=== PATIENT | female | born 1955 | race African-American/Black ===

== ENCOUNTER 2017-02-01 10:44 | Emergency (ER) | payer BC ==
[~2017-02-01] VITALS: Ht 167.6 cm; Wt 72.6 kg
--- NOTE | ~2017-02-01 | EKG ---
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
[~2017-02-01 10:44] MED LIST: ACETAMINOPHEN-1 EAC1 PO; INDOMETHACIN 2525 MG PO; NAPROSYN500 MG PO
[2017-02-01] MEDS ORDERED: NORVASC2.5 MG PO (10:47)
[2017-02-01] MEDS ORDERED: HYDROCHLOROTH12.5 M1 PO (10:47)
[2017-02-01 11:48] LABS: ABSOLUTE NEUTROPHILS 5.7 thou/uL (1.4-8.2); BASOPHILS 1.1 % (0.0-2.0); EOSINOPHILS 0.7 % (0.0-3.0); HEMATOCRIT 45.7 % (37.0-47.0); HEMOGLOBIN 15.5 gm/dL (12.0-15.0); LYMPHOCYTES 24.5 % (24.0-44.0); MCH 31.8 pg (26.0-34.0); MCHC 33.8 g/dL (28.0-37.0); MCV 94.1 fL (80.0-100.0); MONOCYTES 7.9 % (1.0-8.0); PLATELET COUNT 195 thou/uL (150-400); POLYS 65.8 % (36.0-66.0); RBC 4.86 mil/uL (4.20-5.00); RDW 12.9 % (10.5-14.5); WBC 8.7 thou/uL (4.0-11.0)
[2017-02-01 11:50] LABS: MANUAL DIFF NO
[2017-02-01 11:59] LABS: ANION GAP 10 mmol/L (7-16); BUN 13 mg/dL (7-18); CALCIUM 9.1 mg/dL (8.5-10.1); CHLORIDE 105 mmol/L (98-107); CO2 23 mmol/L (21-32); CREATININE 0.8 mg/dL (0.6-1.0); GLUCOSE 115 mg/dL (74-106); POTASSIUM 3.8 mmol/L (3.5-5.1); SODIUM 138 mmol/L (136-145)
[2017-02-01 12:10] LABS: TROPONIN-I < 0.04 ng/mL (<0.06)
[2017-02-01 12:21] LABS: URINE BILIRUBIN NEGATIVE (Negative); URINE BLOOD TRACE (Negative); URINE COLOR YELLOW; URINE GLUCOSE-RANDOM* NEGATIVE (Negative); URINE KETONES NEGATIVE (Negative); URINE PROTEIN (DIPSTICK) TRACE (Negative)
[2017-02-01] MEDS ORDERED: PREDNISONE 20 M20 MG PO (12:23)
[2017-02-01] MEDS ORDERED: PROVENTIL HFA6.7 G1 INH (12:24)
[2017-02-01 12:25] LABS: URINE LEUKOCYTES-REFLEX 2+ (Negative)
[2017-02-01] MEDS ORDERED: MACROBID 100 M100 M1 PO (12:32)
[2017-02-01 12:39] LABS: CASTS None Seen /LPF (None Seen); CRYSTALS None Seen /LPF (None Seen); SQUAMOUS 0-3 Few /LPF (0-3)
[2017-02-01 12:40] LABS: URINE RBC 3-10 Few /HPF (0-2); URINE WBC-REFLEX >25 Many /HPF (0-5)
[2017-02-01 12:42] VITALS: BP 128/77
== END 2017-02-01 12:44 | disposition home or self-care (01) ==
LOC: ER 10:44
PROVIDERS: Physician Assistant
DX: J06.9 Acute upper respiratory infection, unspecified (principal); N39.0 Urinary tract infection, site not specified; B34.9 Viral infection, unspecified; I10 Essential (primary) hypertension; F17.210 Nicotine dependence, cigarettes, uncomplicated

== ENCOUNTER → 2018-02-04 | Outpatient (CLI) | payer BC ==
[~2018-02-04] MED LIST changes: +HYDROCHLOROTH12.5 M1 PO; +MACROBID 100 M100 M1 PO; +NORVASC2.5 MG PO; +PREDNISONE 20 M20 MG PO; +PROVENTIL HFA6.7 G1 INH
== END ==
LOC: RAD 15:27
DX: R06.02 Shortness of breath (principal); M41.86 Other forms of scoliosis, lumbar region

== ENCOUNTER → 2018-02-09 | Outpatient (CLI) | payer BC | LOC: BC 03:02 | DX: Z12.31 Encounter for screening mammogram for malignant neoplasm of breast (principal) ==

== ENCOUNTER 2018-03-13 22:55 | Emergency (ER) | payer BC ==
[~2018-03-13] VITALS: Ht 162.6 cm; Wt 72.6 kg
[2018-03-13] MEDS ORDERED: MOBIC7.5 MG PO (23:31)
[2018-03-13] MEDS ORDERED: MEDROLDOSEPACK PO (23:31)
[2018-03-13] MEDS ORDERED: ULTRAM 50MG TAB50 MG PO (23:31)
[2018-03-14 00:10] VITALS: BP 149/82
== END 2018-03-14 00:10 | disposition home or self-care (01) ==
LOC: ER 22:55
DX: M54.42 Lumbago with sciatica, left side (principal); F17.210 Nicotine dependence, cigarettes, uncomplicated; I10 Essential (primary) hypertension

== ENCOUNTER 2018-06-01 19:50 | Emergency (ER) | payer BC ==
[~2018-06-01] VITALS: Ht 167.6 cm; Wt 77.1 kg
[~2018-06-01 19:50] MED LIST changes: +MEDROLDOSEPACK PO; +MOBIC7.5 MG PO; +ULTRAM 50MG TAB50 MG PO
[2018-06-01 22:49] LABS: URINE BILIRUBIN NEGATIVE (Negative); URINE BLOOD NEGATIVE (Negative); URINE CLARITY CLEAR; URINE COLOR YELLOW; URINE GLUCOSE-RANDOM* NEGATIVE (Negative); URINE KETONES NEGATIVE (Negative); URINE NITRITE-REFLEX NEGATIVE (Negative); URINE PROTEIN (DIPSTICK) NEGATIVE (Negative); URINE SPECIFIC GRAVITY 1.015 (1.005-1.035)
[2018-06-01 22:50] LABS: ABSOLUTE NEUTROPHILS 2.5 thou/uL (1.4-8.2); BASOPHILS 0.7 % (0.0-2.0); HEMATOCRIT 46.4 % (37.0-47.0); HEMOGLOBIN 15.7 gm/dL (12.0-15.0); LYMPHOCYTES 41.4 % (24.0-44.0); MCH 32.4 pg (26.0-34.0); MCHC 33.9 g/dL (28.0-37.0); MCV 95.7 fL (80.0-100.0); MONOCYTES 9.2 % (1.0-8.0); PLATELET COUNT 157 thou/uL (150-400); POLYS 46.7 % (36.0-66.0); RBC 4.85 mil/uL (4.20-5.00); RDW 13.2 % (10.5-14.5); WBC 5.4 thou/uL (4.0-11.0)
[2018-06-01 22:52] LABS: URINE LEUKOCYTES-REFLEX 1+ (Negative)
[2018-06-01 22:56] LABS: ANION GAP 9 mmol/L (7-16); BUN 13 mg/dL (7-18); CALCIUM 8.8 mg/dL (8.5-10.1); CHLORIDE 105 mmol/L (98-107); CO2 26 mmol/L (21-32); CREATININE 0.8 mg/dL (0.6-1.0); GLUCOSE 93 mg/dL (74-106); POTASSIUM 4.3 mmol/L (3.5-5.1); SODIUM 140 mmol/L (136-145)
[2018-06-01 23:05] LABS: ALBUMIN 3.3 g/dL (3.4-5.0); SGOT 117 U/L (15-37); SGPT 86 U/L (30-65); TOTAL BILIRUBIN 0.5 mg/dL (<0.1-1.0); TOTAL PROTEIN 8.8 g/dL (6.4-8.2); TROPONIN-I <0.06 ng/mL (<0.06)
[2018-06-01 23:17] LABS: SQUAMOUS 0-3 Few /LPF (0-3)
[2018-06-01 23:18] LABS: AMORPHOUS PHOSPHATES Few /LPF (None Seen); CASTS None Seen /LPF (None Seen); MUCUS 0-3 Light strn/LPF (None Seen); URINE WBC-REFLEX 6-15 Few /HPF (0-5)
[2018-06-01 23:24] LABS: BACTERIA-REFLEX 1-9 Few /HPF (None Seen); URINE RBC 0-2 Rare /HPF (0-2)
[2018-06-02] MEDS ORDERED: CIPROFLOXACIN500 M1 PO (04:04)
[2018-06-02] MEDS ORDERED: ZOFRAN ODT4 MG PO (04:04)
[2018-06-02 04:38] VITALS: BP 161/74
--- NOTE | 2018-06-02 08:35 | EKG ---
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 : 1955 Requested By: Aileen Tristan Order Number: [id number] MD: Jose Ramon Coates Measurements Intervals [place] Rate: 58 P: 42 DC: 169 QRS: 4 QRSD: 85 T: 12 QT: 450 QTc: 443 Interpretive Statements Sinus bradycardia Otherwise normal tracing Compared to ECG 02/01/2017 11:12:52 No significant changes Electronically Signed On 06-02-2018 8:34:46 MACHINE MARKER by Jose Ramon Coates [email or web address] ��������������������������������������������� <ELECTRONICALLY SIGNED> ���������������������������������������� By: Jose Ramon Coates MD, [facility] ��������������������������������������������� 06/02/18 0834 2309 2309 Jose Ramon Coates MD, FACC /EPI
== END 2018-06-02 04:38 | disposition home or self-care (01) ==
LOC: ER 19:50
PROVIDERS: Nurse Practitioner Family
DX: N39.0 Urinary tract infection, site not specified (principal); R42 Dizziness and giddiness; I10 Essential (primary) hypertension; F17.210 Nicotine dependence, cigarettes, uncomplicated

== ENCOUNTER 2018-11-23 01:54 | Emergency (ER) | payer BC ==
[~2018-11-23] VITALS: Ht 165.1 cm; Wt 77.1 kg
[~2018-11-23 01:54] MED LIST changes: +CIPROFLOXACIN500 M1 PO; +ZOFRAN ODT4 MG PO
[2018-11-23 02:37] VITALS: BP 154/90
== END 2018-11-23 02:43 | disposition home or self-care (01) ==
LOC: ER 01:54
DX: M25.532 Pain in left wrist (principal); I10 Essential (primary) hypertension; F17.210 Nicotine dependence, cigarettes, uncomplicated; Z79.899 Other long term (current) drug therapy

== ENCOUNTER 2019-02-27 13:42 | Emergency (ER) | payer BC ==
[~2019-02-27] VITALS: Ht 165.1 cm; Wt 77.1 kg
[2019-02-27] MEDS ORDERED: HYDROCHLOROTHIA25 M2 PO (14:11)
[2019-02-27 14:53] LABS: HEMATOCRIT 41.2 % (37.0-47.0); HEMOGLOBIN 13.9 gm/dL (12.0-15.0); MCH 31.3 pg (26.0-34.0); MCHC 33.7 g/dL (28.0-37.0); MCV 92.9 fL (80.0-100.0); RBC 4.44 mil/uL (4.20-5.00); RDW 12.8 % (10.5-14.5)
[2019-02-27 15:00] LABS: CALCIUM 9.3 mg/dL (8.5-10.1); CREATININE 0.8 mg/dL (0.6-1.0); POTASSIUM 3.4 mmol/L (3.5-5.1)
[2019-02-27 17:18] VITALS: BP 144/75
[2019-02-27] MEDS ORDERED: BUTALB-APAP-CA1 EACH PO (17:18)
== END 2019-02-27 17:25 | disposition home or self-care (01) ==
LOC: ER 13:42
PROVIDERS: Physician Assistant
DX: I10 Essential (primary) hypertension (principal); F17.210 Nicotine dependence, cigarettes, uncomplicated

== ENCOUNTER 2019-03-20 12:03 | Emergency (ER) | payer BC ==
[~2019-03-20] VITALS: Ht 165.1 cm; Wt 77.1 kg
[~2019-03-20 12:03] MED LIST changes: +BUTALB-APAP-CA1 EACH PO; +HYDROCHLOROTHIA25 M2 PO
[2019-03-20 13:33] LABS: HEMATOCRIT 43.9 % (37.0-47.0); HEMOGLOBIN 14.8 gm/dL (12.0-15.0); MCH 31.3 pg (26.0-34.0); MCHC 33.6 g/dL (28.0-37.0); MCV 93.1 fL (80.0-100.0); RBC 4.72 mil/uL (4.20-5.00); RDW 13.1 % (10.5-14.5); WBC 6.2 thou/uL (4.0-11.0)
[2019-03-20 13:42] LABS: CALCIUM 10.2 mg/dL (8.5-10.1); CREATININE 0.8 mg/dL (0.6-1.0); POTASSIUM 4.2 mmol/L (3.5-5.1)
[2019-03-20] MEDS ORDERED: NAPROSYN500 MG PO (13:44)
[2019-03-20] MEDS ORDERED: TRAMADOL 50 MG50 MG PO (13:44)
[2019-03-20 13:48] LABS: ALBUMIN 4.2 g/dL (3.4-5.0); TOTAL BILIRUBIN 0.7 mg/dL (<0.1-1.0); TOTAL PROTEIN 9.8 g/dL (6.4-8.2); URIC ACID* 5.4 mg/dL (2.6-7.2)
[2019-03-20 14:53] VITALS: BP 128/68
== END 2019-03-20 14:53 | disposition home or self-care (01) ==
LOC: ER 12:03
PROVIDERS: Emergency Medicine
DX: M25.572 Pain in left ankle and joints of left foot (principal); M79.672 Pain in left foot; M79.671 Pain in right foot; I10 Essential (primary) hypertension; F17.210 Nicotine dependence, cigarettes, uncomplicated; Z79.899 Other long term (current) drug therapy

== ENCOUNTER 2019-07-07 06:15 | Emergency (ER) | payer BC ==
[~2019-07-07] VITALS: Ht 167.6 cm; Wt 77.1 kg
[~2019-07-07 06:15] MED LIST changes: +TRAMADOL 50 MG50 MG PO
[2019-07-07 06:58] LABS: ABSOLUTE NEUTROPHILS 5.6 thou/uL (1.4-8.2); BASOPHILS 0.7 % (0.0-2.0); EOSINOPHILS 1.5 % (0.0-3.0); HEMATOCRIT 42.1 % (37.0-47.0); HEMOGLOBIN 14.1 gm/dL (12.0-15.0); LYMPHOCYTES 30.8 % (24.0-44.0); MCH 31.2 pg (26.0-34.0); MCHC 33.3 g/dL (28.0-37.0); MCV 93.5 fL (80.0-100.0); MONOCYTES 7.1 % (1.0-8.0); PLATELET COUNT 215 thou/uL (150-400); POLYS 59.9 % (36.0-66.0); RBC 4.51 mil/uL (4.20-5.00); WBC 9.3 thou/uL (4.0-11.0)
[2019-07-07 07:09] LABS: CALCIUM 9.8 mg/dL (8.5-10.1); CREATININE 0.9 mg/dL (0.6-1.0); MAGNESIUM 1.8 mg/dL (1.8-2.4); POTASSIUM 4.3 mmol/L (3.5-5.1)
[2019-07-07 07:58] VITALS: BP 131/60
--- NOTE | 2019-07-07 08:13 | EKG ---
[facility] [place] [address] ELECTROCARDIOGRAM REPORT Name: ARMANDO AKERS Room #: [facility] [id number] Admission: 07/07/19 Attend Phys: Discharge: 07/07/19 Date of : 59 Report #: [id number] THIS REPORT FOR: cc: Alejandra Arreguin DNP, Mary E. DNP Lundgren, Craig H. MD [facility] ~ THIS REPORT FOR: //name// [facility] ED Test Date: 2019-07-07 Test Time: 06:55:30 Pat Name: ARMANDO AKERS Department: Room: Gender: Casting Chipper: : 1955 Requested By: Jonathan Rivas Order Number: [id number] MD: Jose Ramon Coates Measurements Intervals [place] Rate: 55 P: 45 [place]: 165 QRS: 21 QRSD: 77 T: 32 QT: 454 QTc: 435 Interpretive Statements Sinus bradycardia Otherwise normal tracing Compared to ECG 06/01/2018 23:09:34 No significant change was found Electronically Signed On 07-07-2019 8:12:32 CDT by Jose Ramon Coates [email or web address] <ELECTRONICALLY SIGNED> By: Jose Ramon Coates MD, FAC [id number] 4 Jose Ramon Coates MD, [facility] /EPI
== END 2019-07-07 07:59 | disposition home or self-care (01) ==
LOC: ER 06:15
PROVIDERS: Emergency Medicine
DX: R11.0 Nausea (principal); R06.02 Shortness of breath; I10 Essential (primary) hypertension; F17.210 Nicotine dependence, cigarettes, uncomplicated

== ENCOUNTER 2020-09-15 11:47 | Emergency (ER) | payer OTHER ==
[~2020-09-15] VITALS: Ht 165.1 cm; Wt 77.1 kg
[2020-09-15] MEDS ORDERED: PROVENTIL HFA6.7 G1 INH ×3 (13:48→14:50)
[2020-09-15] MEDS ORDERED: PROMETH-CODEIN 65 ML PO ×3 (13:48→14:50)
[2020-09-15 13:50] VITALS: BP 128/80
== END 2020-09-15 13:50 | disposition home or self-care (01) ==
LOC: ER 11:47
DX: J40 Bronchitis, not specified as acute or chronic (principal); Z20.822 Contact with and (suspected) exposure to COVID-19; I10 Essential (primary) hypertension; F17.210 Nicotine dependence, cigarettes, uncomplicated

== ENCOUNTER 2021-03-26 05:01 | Emergency (ER) | payer BC, OTHER ==
[~2021-03-26] VITALS: Ht 165.1 cm; Wt 77.1 kg
[~2021-03-26 05:01] MED LIST changes: +PROMETH-CODEIN 65 ML PO
[2021-03-26 05:45] VITALS: BP 163/78
== END 2021-03-26 05:45 | disposition home or self-care (01) ==
LOC: ER 05:01
DX: M25.572 Pain in left ankle and joints of left foot (principal); I10 Essential (primary) hypertension; F17.210 Nicotine dependence, cigarettes, uncomplicated; Z79.51 Long term (current) use of inhaled steroids; Z79.899 Other long term (current) drug therapy